=== PATIENT | male | born 1965 | race American Indian/Alaskan Native ===

== ENCOUNTER 2020-11-11 20:52 | Emergency (ER) | payer SELFPAY ==
[2020-11-11 21:27] VITALS: BP 167/89
--- NOTE | 2020-11-13 09:46 | Electrocardiograph Report ---
[facility] Test Date: 2020-11-11 Test Time: 21:37:54 Pat Name: CONNOR HERNANDEZ Department: Room: Gender: M Talent Director: : [id number] Requested By: KAMI WONG Order Number: [id number] Reading MD: Chaparro Julio Measurements Intervals [place] Rate: 61 P: 54 MT: 166 QRS: 52 QRSD: 81 T: 74 QT: 429 QTc: 434 Interpretive Statements Sinus rhythm Anteroseptal infarct, age indeterminate No previous ECG available for comparison Electronically Signed On 11-13-2020 9:45:38 EDT by Chaparro Julio
== END 2020-11-12 02:15 | disposition home or self-care (01) ==
LOC: ED 20:52
DX: R51.9 Headache, unspecified (principal); Z53.21 Procedure and treatment not carried out due to patient leaving prior to being seen by health care provider
CPT/HCPCS: 93005